=== PATIENT | female | born 1975 | race Asian ===

== ENCOUNTER → 2017-03-30 | Outpatient (CLI) | payer OTHER ==
[~2017-03-30] MED LIST: INSU70IN2 SC; MTR600X PO; PRENTAB26 PO
== END | disposition home or self-care (01) ==
LOC: C.LABBC 15:00
PROVIDERS: ATTEND Obstetrics & Gynecology
DX: O09.00 Supervision of pregnancy with history of infertility, unspecified trimester (principal)

== ENCOUNTER → 2017-04-25 | Outpatient (CLI) | payer OTHER ==
[2017-04-25 18:30] LABS: URINE APPEARANCE CLEAR (CLEAR); URINE BILIRUBIN NEG (NEG); URINE COLOR YELLOW; URINE NITRITE NEG (NEG); URINE SPECIFIC GRAVITY 1.017 (1.000-1.030); UROBILINOGEN NEG (NEG)
[2017-04-25 18:36] LABS: MANUAL MICROSCOPIC REQUIRED? NO; REVIEW REQ? NO
== END | disposition home or self-care (01) ==
LOC: C.LABSPEC 17:25
PROVIDERS: ATTEND Obstetrics & Gynecology
DX: O09.521 Supervision of elderly multigravida, first trimester (principal)

== ENCOUNTER → 2017-04-28 | Outpatient (CLI) | payer OTHER ==
[2017-04-28 16:54] LABS: BASO % 0.1 %; BASO ABS # 0.01 K/uL (0-0.2); COMPLETE YES; EOS % 1.6 %; HEMATOCRIT 36.3 % (37-47); IG% 0.2 %; LYMPH % 24.4 %; LYMPH ABS # 2.19 K/uL (1.2-3.4); MEAN CELL VOLUME 87.5 fL (80-100); MEAN CORPUSCULAR HEMOGLOBIN 28.9 pg (25-34); MEAN CORPUSCULAR HGB CONC 33.1 g/dl (32-36); MEAN PLATELET VOLUME 11.6 fL (7.4-10.4); MONO % 8.3 %; NEUT % 65.4 %; PLATELET COUNT 295 K/uL (130-400); RED BLOOD COUNT 4.15 M/uL (4.2-5.4); WHITE BLOOD COUNT 8.99 K/uL (4.8-10.8)
== END | disposition home or self-care (01) ==
LOC: C.LAB1850 15:53
PROVIDERS: ATTEND Obstetrics & Gynecology
DX: O09.521 Supervision of elderly multigravida, first trimester (principal); Z3A.00 Weeks of gestation of pregnancy not specified

== ENCOUNTER → 2017-06-24 | Outpatient (CLI) | payer OTHER ==
[2017-06-27 14:18] LABS: AFP CONCENTRATION 31.6 NG/ML; AFP MULTIPLE OF MEDIAN 0.78; AFPTS GESTATIONAL AGE 17.3 WEEKS; AFPTS INSULIN DEP DIABETIC? NO; AFPTS MATERNAL WT 140 LBS; CIGARETTE SMOKER? NOT PROVIDED; HISTORY OF NTD NO; REPEAT SAMPLE? NO
== END | disposition home or self-care (01) ==
LOC: C.LAB1850 16:55
PROVIDERS: ATTEND Obstetrics & Gynecology
DX: O09.523 Supervision of elderly multigravida, third trimester (principal); Z3A.00 Weeks of gestation of pregnancy not specified

== ENCOUNTER → 2017-07-26 | Outpatient (CLI) | payer OTHER | END | disposition home or self-care (01) | LOC: C.CPL 13:25 | PROVIDERS: ATTEND Obstetrics & Gynecology | DX: O09.522 Supervision of elderly multigravida, second trimester (principal) ==

== ENCOUNTER → 2017-09-22 | Outpatient (CLI) | payer OTHER | END | disposition home or self-care (01) | LOC: C.LABSPEC 17:35 | PROVIDERS: ATTEND Obstetrics & Gynecology | DX: O09.523 Supervision of elderly multigravida, third trimester (principal); Z3A.00 Weeks of gestation of pregnancy not specified ==

== ENCOUNTER → 2017-11-02 | Outpatient (CLI) | payer OTHER | END | disposition home or self-care (01) | LOC: C.LABSPEC 17:15 | PROVIDERS: ATTEND Obstetrics & Gynecology | DX: O09.523 Supervision of elderly multigravida, third trimester (principal) ==

== ENCOUNTER 2017-11-21 21:40 | Inpatient (IN) | payer OTHER ==
[~2017-11-21] VITALS: Ht 154.9 cm; Wt 73.0 kg
[2017-11-21] MEDS ORDERED: LACTATED RINGER'S 1000ML 1,000 ML IV SCH (22:06)
[2017-11-21] MEDS ORDERED: LACTATED RINGER'S 1000ML 1,000 ML IV PRN (22:06)
[2017-11-21] MEDS ORDERED: SODIUM CHLORIDE 0.9% 1000ML 1,000 ML IV SCH (22:06)
[2017-11-21] MEDS ORDERED: DEXTROSE 5% 1000ML 1,000 ML IV SCH (22:06)
[2017-11-21] MEDS: INSULIN REGULAR 250 UNITS in SODIUM CHLORIDE 0.9% 250ML 250 ML IV SCH (22:15)
[2017-11-21] MEDS ORDERED: DEXTROSE 50% 50 ML SYR IV PRN (22:15)
[2017-11-21] MEDS ORDERED: EpHEDrine SULFATE INJ 50 MG/ML AMP ONE (22:21)
[2017-11-21] MEDS ORDERED: BUPIVACAINE 0.25% 30 ML VIAL ONE (22:21)
[2017-11-21] MEDS ORDERED: FENTANYL 2MCG/ML ROPIV 1.25MG/ML 100ML BAG ONE (22:22)
[2017-11-21] MEDS ORDERED: FENTANYL CITRATE INJ 50 MCG/1 ML 2 ML VIAL ONE (22:22)
[2017-11-21 22:43] LABS: HEMATOCRIT 35.5 % (37-47); HEMOGLOBIN 12.1 g/dL (12.0-16.0); MEAN CELL VOLUME 88.8 fL (80-100); MEAN CORPUSCULAR HEMOGLOBIN 30.3 pg (25-34); MEAN CORPUSCULAR HGB CONC 34.1 g/dl (32-36); MEAN PLATELET VOLUME 11.3 fL (7.4-10.4); PLATELET COUNT 198 K/uL (130-400)
[2017-11-21] MEDS ORDERED: NALOXONE HCL INJ 1 MG in SODIUM CHLORIDE 0.9% 1000ML 1,000 ML IV PRN (23:50)
[2017-11-21] MEDS ORDERED: LACTATED RINGER'S 1000ML 500 ML IV PRN (23:50)
[2017-11-22] MEDS ORDERED: NALBUPHINE HCL INJ 10 MG/ML AMP IV PRN
[2017-11-22] MEDS ORDERED: EpHEDrine SULFATE INJ 50 MG/ML AMP IV PRN
[2017-11-22] MEDS ORDERED: NALOXONE HCL INJ 0.4 MG/1 ML VIAL/CARP IV PRN
[2017-11-22] MEDS ORDERED: DiphenhydrAMINE HCL 50 MG/ML VIAL IV PRN
[2017-11-22] MEDS ORDERED: FENTANYL 2MCG/ML ROPIV 1.25MG/ML 100ML BAG EPI PRN
[2017-11-22] MEDS ORDERED: IV FLUIDS COMPLETED PRN (00:45)
[2017-11-22 00:58] VITALS: Ht 154.9 cm; Wt 73.0 kg
[2017-11-22] MEDS ORDERED: FERR1TAB23 (01:03)
[2017-11-22] MEDS ORDERED: OXYTOCIN 30 UNITS/500ML NSS IV ONE (01:36)
[2017-11-22] MEDS ORDERED: LACTATED RINGER'S 1000ML 1,000 ML IV SCH (02:20)
[2017-11-22] MEDS ORDERED: ACETAMINOPHEN 325 MG TAB PO PRN (02:30)
[2017-11-22] MEDS ORDERED: OXYCODONE/ACETAMINOPHEN 5-325 TAB PO PRN (02:30)
[2017-11-22] MEDS ORDERED: DIPHTHERIA/TETANUS/PERTUSSIS 0.5 ML SYR/VIAL IM. ONE (02:30)
[2017-11-22] MEDS ORDERED: HYDROCORTISONE ACETATE 25 MG SUPP PR PRN (02:30)
[2017-11-22] MEDS ORDERED: SUPERCREAM 0.870 % 15GM JAR EXT PRN (02:30)
[2017-11-22] MEDS ORDERED: LANOLIN OINT EXT PRN (02:30)
[2017-11-22] MEDS ORDERED: BENZOCAINE 20% AER SPR 82.5 GM CAN EXT PRN (02:30)
[2017-11-22] MEDS ORDERED: OXYTOCIN 30 UNITS/500ML NSS IV PRN (02:30)
--- NOTE | 2017-11-22 03:30 | DELIVERY SUMMARY ---
DATE OF OPERATION: 11/22/2017 VAGINAL DELIVERY NOTE PREOPERATIVE DIAGNOSES: 1. Cohn intrauterine at 38 and 6. 2. Onset of labor. 3. Group B strep negative. POSTOPERATIVE DIAGNOSES: Same. PROCEDURE: Spontaneous vaginal delivery and repair of second-degree laceration. SURGEON: Sara Morales MD. CRIME INVESTIGATOR SPECIAL AGENT: None. ESTIMATED BLOOD LOSS: 250. FINDINGS: Placenta spontaneous and intact with a 3-vessel cord in which a true knot was noted. COMPLICATIONS: None. DISPOSITION: Stable in labor and delivery. DESCRIPTION OF PROCEDURE: Aixa is a 42-year-old, 3, para 2, who presented at 38 and 6 in active labor. She was managed with an epidural for pain management and artificial rupture of membranes. She did reach complete dilation and have a fairly short second stage of labor, after which I was called to the room for delivery. The patient quickly brought the head to with minimal pushing effort, as the head was in the TEN position, I was prepping the perineum. The head then did deliver spontaneously. The neck was palpated and although a nuchal cord was not identified, the cord was noted to be resting over the 's right/anterior shoulder where a true knot was identified. The patient was then encouraged to push to deliver the shoulders which she did smoothly with no difficulty whatsoever. The infant was then placed on the maternal abdomen while the cord was doubly clamped and then cut by the father of the baby. The infant was moved to the warmer for nursing attention. The cervix, vagina and perineum were examined and found to have a second-degree perineal laceration slightly to the right of midline. This was carefully reapproximated achieving hemostasis and good cosmesis using a 3-0 Vicryl suture in a running locked manner. At the completion of repair, the placenta then delivered spontaneously and was noted to be intact with a 3-vessel cord and slight circummarginate insertion of the membrane. Fundus was firm. Lochia was minimal, and both mother and infant were in excellent condition at the time I left the delivery suite. I attest to the content of the Intraoperative Record and any orders documented therein. Any exception s are noted below.
--- NOTE | 2017-11-22 04:15 | Anesthesia Procedure Note ---
Anesthesia Epidural Removal Nt Date & Time November 22, 2017 at 04:15 Vital Signs Pain Intensity: 0.0 Notes Mental Status: alert / awake / arousable, participated in evaluation Nausea / Vomiting: adequately controlled Pain: adequately controlled Airway Patency, RR, SpO2: stable & adequate BP & HR: stable & adequate Hydration State: stable & adequate Neuraxial Anesthesia: was administered, sensory block is resolving Anesthetic Complications: no major complications apparent, pt satisfied with anesthetic care Epidural: removed without complications, with tip intact
[2017-11-22 04:50] VITALS: BP 123/76; PULSE 82; TEMP 36.5
[2017-11-22] MEDS: IBUPROFEN 600 MG TAB PO PRN ×2 (06:20→15:09)
--- NOTE | 2017-11-22 06:25 | Discharge Instructions ---
Discharge Instructions Date of Service November 22, 2017. Admission Reason for Admission: Normal Labor And Delivery Discharge Discharge Diagnosis / Problem: Vaginal Delivery Discharge Goals Goal(s): Routine recovery after delivery Medications Continue Dispensed Medications: supercream, dermaplast, tucks, lansinoh Activity Recommendations Activity Limitations: per Instructions/Follow-up section . Instructions / Follow-Up Instructions / Follow-Up ACTIVITY RECOMMENDATIONS: * Gradual return to full activity over the next 2-3 weeks. * No lifting - nothing heavier than baby over the next 2-3 weeks. * Do not engage in vigorous exercise, sexual activity or sports until cleared by your physician. * Do not drive or operate any motorized equipment until cleared by your physician. * You may shower/bathe daily. MEDICATIONS: For discomfort or pain, you may use Acetaminophen (Tylenol), Ibuprofen (Advil), or Naproxen (Aleve) following the package directions. For constipation you may use Colace following the package directions. BREAST CARE: If you are not breast feeding: * Wear a supportive bra 24 hours a day for one to two weeks. * Avoid stimulating your breasts and nipples as much as possible during the first few weeks after delivery. * When taking a shower, have the warm water hit your back, not breasts. * When your breasts feel full, apply ice packs. Usually three to four times a day helps ease the discomfort. * Take a mild pain medication (Tylenol / Motrin) when you are uncomfortable. If breast feeding: * Use breast milk to lubricate nipples. Lansinoh cream may be used for sore nipples. You do not need to remove cream prior to breast feeding. If using a different brand of cream, check the label for directions regarding removal of cream prior to nursing. * Wear a supportive bra. * If having problems with breasts or breast feeding, call a vocational rehabilitation consultant or your health care provider. EPISIOTOMY CARE: After delivery, if you have an episiotomy (stitches), the following steps will ease discomfort and aid healing. * For the first 24 hours after delivery, place ice packs next to your episiotomy to help reduce swelling. * After the first 24 hour-period, sitz baths, either portable or in the tub, are suggested. A shower with a shower arm sprayed over the episiotomy may be comforting. * [place]iana care should be done after each voiding and bowel movement. Squirt warm water from a plastic bottle over the perineum (region of the body between the anus and urinary opening) and pat dry. * Use Dermoplast to ease discomfort. Shake container. [place] directly over the episiotomy. Place a Tucks on a clean sanitary pad next to your episiotomy. SPECIAL CARE INSTRUCTIONS: When you are discharged from the hospital, it is important for you to follow the instructions listed below: * During the first week at home, you should be able to care for yourself and your baby. In addition, the usual light household activities are encouraged. * Limit your activities to the way you feel. Do not try to clean the house or move furniture. Be sensible. * If you actively engage in sports and have done so up until the time of your delivery, you may resume these activities as soon as you feel able. This may take up to one month or even longer. Use good judgment. * Continue to take your vitamins for at least six weeks after the of your baby. * Your diet need not be limited unless you were on a special diet before your delivery. Breast-feeding mothers need around 2500 calories per day and at least 64-80 ounces of fluid per day (8 to 10 glasses). * You should eat foods from the four major food groups. Crash diets or fad diets are to be avoided. Eating lean meats, fresh fruits and vegetables, low-fat dairy products, high fiber foods and a regular exercise program, will help you get back to your pre- weight without putting your health at risk. * Constipation is sometimes a problem after delivery. Take a mild laxative as needed. If breast feeding, Milk of Magnesia is acceptable to use. You may use a suppository or Fleets enema if no episiotomy. * A daily shower or tub bath is suggested. Be sure to thoroughly and gently dry the perineum. * A bloody vaginal discharge will usually continue until around four weeks post . A small amount of bleeding may continue for as long as six weeks. Vaginal discharge changes from the bright red bleeding after delivery to pink then brownish and finally yellowish-pink before becoming white and disappearing. * Bleeding may increase with activity. Your first period may come in 4-8 weeks. If you are breast feeding, your period may be delayed even longer. * [place] (sex) can begin whenever both you and your partner feel comfortable and do not have any form of genital infection. It is recommended that you wait at least six weeks for internal and external healing to occur. If you have questions, please talk to your health care practitioner. A condom should be used to prevent infection and . * Foreplay, gentle intercourse and lubrication is very important the first several times to prevent pain. A water-based lubricant such as K-Y jelly or Astroglide may be used. * If you have RH negative blood and your baby is RH positive, you will receive RHOGAM by injection prior to discharge. The nurse will give you a card to keep with you that has the date and place that you received RHOGAM after delivery. * During your care, you had a Rubella screen done to check for the presence of rubella antibodies in your blood. If your test was negative, you will receive a Rubella vaccine prior to discharge. This vaccine may cause a fever, soreness at the injection site and flu-like symptoms. If these symptoms persist, notify your health care practitioner. is not advised for one month after a Rubella vaccine. * Verbalizes understanding of car seat law as reviewed with patient nursing. * Car Seat hand-out given and reviewed with patient by nursing. * Shaken baby information reviewed with patient by nursing. Call you doctor if: * Heavy bleeding (saturating several pads an hour) or passing clots the size of your fist. * A fever >101 degrees F (38.3 degrees C) on two occasions four hours apart and /or chills. * Unusual pain in the pelvic or vaginal areas. * "Baby Blues" lasting longer than two weeks. If you have any questions or concerns, call your health care practitioner at . FOLLOW UP VISIT: * Please call the office at to schedule a 6 week examination. It is important you keep this appointment. It is important for you to make arrangements for either yearly or twice yearly check-ups thereafter. Current Hospital Diet Patient's current hospital diet: Regular OB Diet Discharge Diet Recommended Diet: Regular Diet Pending Studies Studies pending at discharge: no Medical Emergencies . Who to Call and When: Medical Emergencies: If at any time you feel your situation is an emergency, please call 911 immediately. . Non-Emergent Contact Non-Emergency issues call your: Primary Care Provider . . "Provider Documentation" section prepared by Jim Jara. .
[2017-11-22 08:00] VITALS: BP 103/66; PULSE 86; TEMP 36.7; O2SAT 96
[2017-11-22] MEDS: DOCUSATE SODIUM 100 MG CAP PO SCH ×2 (08:14→20:24)
[2017-11-22] MEDS: PRENATAL VITAMIN TAB PO SCH (08:14)
[2017-11-22 11:30] VITALS: BP 108/68; PULSE 80; TEMP 37; O2SAT 98
[2017-11-22 15:10] VITALS: BP 110/70; PULSE 88; TEMP 36.7; O2SAT 97
[2017-11-22 20:15] VITALS: BP 102/66; PULSE 89; TEMP 36.6; O2SAT 96
[2017-11-22] MEDS: INSULIN REGULAR 250 UNITS in SODIUM CHLORIDE 0.9% 250ML 250 ML IV SCH (22:15)
[2017-11-23 00:25] VITALS: BP 105/72; PULSE 90; TEMP 36.7; O2SAT 96
--- NOTE | 2017-11-23 06:24 | Progress Note ---
Subjective November 23, 2017. Subjective conversation w/ patient Ambulation: ambulating normally Voiding: no voiding problems Diet Tolerance: Regular Diet Lochia: Moderate Feeding Type: Breast Feeding Pain: 2/10 cramping abdominal pain with Review of Systems Constitutional: No fever, No chills Respiratory: No shortness of breath Cardiac: No chest pain Abdomen: No nausea, No vomiting Objective Vital Signs Date Time Temp Pulse Resp B/P (MAP) Pulse Ox O2 Delivery O2 Flow Rate FiO2 11/23/17 00:25 36.7 90 18 105/72 (83) 96 Room Air 11/23/17 00:25 96 Room Air 11/22/17 20:15 36.6 89 18 102/66 (78) 96 Room Air 11/22/17 15:10 36.7 88 16 110/70 (83) 97 Room Air 11/22/17 15:10 Room Air 11/22/17 11:30 37.0 80 18 108/68 (81) 98 Room Air 11/22/17 08:35 Room Air 11/22/17 08:00 36.7 86 18 103/66 (78) 96 Room Air Physical Exam General Appearance: WELL-APPEARING, WD/WN, NO APPARENT DISTRESS Respiratory/Chest: lungs clear, normal breath sounds Cardiovascular: regular rate, rhythm Abdomen: soft Fundus: Firm, Non-Tender, Relation to Umbilicus (at u) Extremities: no calf tenderness Laboratory Results Last 24 Hours Test 11/23/17 04:44 Assessment and Plan Post- Day#: 1 Continue Routine Care: 42F s/p NVD day 1 - O+, Rubella Immune, GBS -ve - pt doing well clinically - Vital signs reviewed and WNL - Encourage ambulation, monitor and control pain with Motrin PRN - Encourage breast feeding - will need glucose tolerance test in 6 weeks given GDM controlled w/insulin during - Pt ready for d/c today and will be counselled on discharge instructions Resident Physician Supervision Note: I interviewed and examined the patient. Discussed with Dr. Fernandez and agree with findings and plan as documented in the note. Any exceptions or clarifications are listed here: [None] Documented By: Mil Schultz Resident Tracking Resident Involvement: Resident Care Provided Care Provided: OB Delivery
[2017-11-23 07:55] VITALS: BP 123/86; PULSE 92; TEMP 36.6; O2SAT 98
[2017-11-23] MEDS: DOCUSATE SODIUM 100 MG CAP PO SCH (08:19)
[2017-11-23] MEDS: PRENATAL VITAMIN TAB PO SCH (08:19)
[2017-11-23] MEDS: IBUPROFEN 600 MG TAB PO PRN (08:20)
[2017-11-23 09:11] LABS: HEMATOCRIT 34.2 % (37-47); HEMOGLOBIN 11.3 g/dL (12.0-16.0)
[2017-11-23 11:47] VITALS: BP_DIAS 86; PULSE 92; TEMP 36.6
== END 2017-11-23 14:00 | disposition home or self-care (01) | DRG 775 ==
LOC: C.LD 21:40 → C.OPB 21:40 → C.LD 22:08 → C.OPB 22:09 → C.OBG 11-22 04:54
PROVIDERS: ADMIT Obstetrics & Gynecology; ATTEND Obstetrics & Gynecology
PROC: 0KQM0ZZ Repair Perineum Muscle, Open Approach (ICD-10-PCS; principal; 2017-11-22)
PROC: 10E0XZZ Delivery of Products of Conception, External Approach (ICD-10-PCS; principal; 2017-11-22)
DX: O24.424 Gestational diabetes mellitus in childbirth, insulin controlled (principal); O70.1 Second degree perineal laceration during delivery; Z3A.38 38 weeks gestation of pregnancy; Z37.0 Single live birth